=== PATIENT | female | born 1935 | race Caucasian/White ===

== ENCOUNTER 2016-10-02 09:43 | Emergency (ER) | payer OTHER ==
[~2016-10-02] VITALS: Ht 170.2 cm; Wt 90.7 kg
[2016-10-02 09:45] VITALS: BP_SYST 166
[2016-10-02] MEDS ORDERED: hydrALAZINE HCL 25 MG TABLET PO ONE (14:00)
[2016-10-02 16:01] VITALS: BP_SYST 174
== END 2016-10-02 16:01 | disposition home or self-care (01) ==
LOC: SED 09:43
DX: Z04.3 Encounter for examination and observation following other accident (principal); G89.29 Other chronic pain; M25.562 Pain in left knee
CPT/HCPCS: 70450-TC; 72170-TC; 99284

== ENCOUNTER 2020-01-30 05:55 | Observation (INO) | payer OTHER, SELFPAY ==
[2020-01-30] VITALS (7 sets, daily range): BP systolic 109–209
[~2020-01-30] VITALS: Ht 165.1 cm; Wt 68.0 kg
[2020-01-30] MEDS ORDERED: hydrALAZINE HCL 20 MG/ML VIAL IVP ONE ×2 (06:15→10:00)
[2020-01-30] MEDS ORDERED: ATEN-41 PO (06:31)
[2020-01-30] MEDS ORDERED: LEVE500T9 PO (06:33)
[2020-01-30] MEDS ORDERED: CARB200T PO (06:34)
[2020-01-30] MEDS ORDERED: SYN50 PO (06:35)
[2020-01-30 06:40] LABS: ALANINE AMINOTRANSFERASE 29 U/L (12-78); ALBUMIN 3.5 g/dL (3.4-4.8); ASPARTATE AMINOTRANSFERASE 31 U/L (10-37); TOTAL BILIRUBIN 0.5 mg/dL (0.0-1.0)
[2020-01-30] MEDS ORDERED: PANTOPRAZOLE SODIUM 40 MG/VIAL (PROTONIX) IVP ONE (06:45)
[2020-01-30 06:54] LABS: HEMATOCRIT 40.6 % (36-48); HEMOGLOBIN 13.3 g/dL (12.0-16.0); MEAN CORPUSCULAR HEMOGLOBIN 32 pg (27-31); MEAN CORPUSCULAR HGB CONC 33 % (32-36); MEAN CORPUSCULAR VOLUME 97 fL (79.0-98.0); PLATELET COUNT (AUTO) 100 K/uL (130-430); RED BLOOD CELL COUNT(AUTO) 4.17 MIL/uL (4.2-6.2); RED CELL DISTRIBUTION WIDTH 15.2 % (9.0-15.0); WHITE BLOOD COUNT (AUTO) 18.5 K/uL (4.8-10.8)
[2020-01-30 07:08] LABS: ANION GAP 9 (5-15); CALCIUM 8.6 mg/dL (8.4-11.0); CHLORIDE 105 mmol/L (98-107); CREATININE 1.23 mg/dL (0.55-1.30); GLUCOSE 114 mg/dL (70-99); POTASSIUM 4.8 mmol/L (3.5-5.1); SODIUM SERUM 142 mmol/L (136-145); UREA NITROGEN, BLOOD 42 mg/dL (8-21)
[2020-01-30 07:17] LABS: INR 0.9 (0.8-1.2); PROTHROMBIN TIME 9.6 SECS (9.5-12.5)
[2020-01-30 07:35] LABS: ATYPICAL LYMPHOCYTES % 4 % (0-0); BASOPHILS % (MANUAL) 0 % (0-2); EOSINOPHILS % (MANUAL) 1 % (0-7); LYMPHOCYTES % (MANUAL) 69 % (20-46); MONOCYTES % (MANUAL) 1 % (0-11)
[2020-01-30] MEDS ORDERED: LEVE500T53 PO (09:46)
[2020-01-30] MEDS ORDERED: levETIRAcetam 500 MG TABLET PO ONE (10:00)
[2020-01-30] MEDS: levETIRAcetam 500 MG TABLET PO SCH (18:31)
[2020-01-30] MEDS ORDERED: levETIRAcetam 500 MG TABLET PO SCH ×2 (21:00)
[2020-01-30 22:27] LABS: HEMATOCRIT 35.4 % (36-48)
[2020-01-30 22:32] LABS: HEMOGLOBIN 11.7 g/dL (12.0-16.0)
[2020-01-31 06:40] LABS: HEMATOCRIT 35.9 % (36-48)
[2020-01-31] MEDS ORDERED: LEVOTHYROXINE SODIUM 0.05 MG TABLET PO SCH (07:00)
[2020-01-31 08:00] VITALS: BP_SYST 177
[2020-01-31] MEDS: levETIRAcetam 500 MG TABLET PO SCH (08:17)
[2020-01-31] MEDS: ENALAPRILAT DIHYDRATE 1.25 MG/ML VIAL IVP PRN ×2 (08:18→13:31)
[2020-01-31] MEDS ORDERED: PANTOPRAZOLE SODIUM 40 MG/VIAL (PROTONIX) IVP ONE (10:30)
[2020-01-31 12:00] VITALS: BP_SYST 167
[2020-01-31 14:01] VITALS: BP_SYST 150
[2020-01-31 14:40] LABS: HEMOGLOBIN 12.7 g/dL (12.0-16.0)
[2020-01-31 16:25] VITALS: BP_SYST 158
[2020-02-01] MEDS ORDERED: PANTOPRAZOLE SODIUM 40 MG/VIAL (PROTONIX) IVP SCH (09:00)
== END 2020-01-31 17:05 | disposition home or self-care (01) ==
LOC: SED 05:55 → STU 07:37 → INTOOBSV 07:37 → STU 08:39
PROVIDERS: ADMIT Internal Medicine Hospice and Palliative Medicine; ATTEND Internal Medicine Hospice and Palliative Medicine
DX: K92.2 Gastrointestinal hemorrhage, unspecified (principal); Z20.828 Contact with and (suspected) exposure to other viral communicable diseases; N20.0 Calculus of kidney; I10 Essential (primary) hypertension; G40.909 Epilepsy, unspecified, not intractable, without status epilepticus; E03.9 Hypothyroidism, unspecified; H26.9 Unspecified cataract; Z79.899 Other long term (current) drug therapy
CPT/HCPCS: 36415 ×2; 71045; 74176; 76376; 80053; 82272; 85007; 85018 ×2; 85027; 85610; 87426; 93005; 93306; 96374; 96375 ×2; 96376 ×2; 99285; C9113 ×2; G0378; J0360; J7050

== ENCOUNTER 2020-01-31 20:59 | Inpatient (IN) | payer OTHER ==
[~2020-01-31] VITALS: Ht 165.1 cm; Wt 68.0 kg
[~2020-01-31 20:59] MED LIST: ATEN-41 PO; CARB200T PO; LEVE500T53 PO; LEVE500T9 PO; SYN50 PO
[2020-01-31 21:08] VITALS: BP_SYST 150; BP_SYST 153
--- NOTE | 2020-01-31 21:08 | NUR ---
Patient to ER bed 04 to [facility] for evaluation. Side rails up. Report given to ANDRÉS Mehta Addendum: 01/31/20 at 2112 by [email or web address] placed in bed 3
--- NOTE | 2020-01-31 21:14 | NUR ---
ER Dr. RAY at bedside examining patient.
--- NOTE | 2020-01-31 21:30 | NUR ---
PT BIB BLS AMBULANCE FROM HOME. PT C/O BLEEDING FROM RECTUM. PT ANO X4. PT DENIES ANY ABDOMINAL PAIN OR DISCOMFORT. PT DENIES N/V/D. BRIGHT RED BLOOD PRESENT IN DIAPER. RESPIRATIONS EVEN AND UNLABORED. BED LOCKED IN LOWEST POSITION. SAFETY PRECAUTIONS PLACE.
[2020-01-31 21:57] LABS: HEMATOCRIT 39.4 % (36-48); MEAN CORPUSCULAR HEMOGLOBIN 32 pg (27-31); MEAN CORPUSCULAR HGB CONC 33 % (32-36); MEAN CORPUSCULAR VOLUME 97 fL (79.0-98.0); PLATELET COUNT (AUTO) 110 K/uL (130-430); RED BLOOD CELL COUNT(AUTO) 4.07 MIL/uL (4.2-6.2); RED CELL DISTRIBUTION WIDTH 14.7 % (9.0-15.0); WHITE BLOOD COUNT (AUTO) 17.2 K/uL (4.8-10.8)
--- NOTE | 2020-01-31 22:00 | NUR ---
# 16 FR In and Out catheter with use of sterile technique. Immediate return of 150 ml CLEAR YELLOW urine noted. Urine sample collected and sent to lab. Pt tolerated procedure WELL. Patient unable to toilet self.
[2020-01-31 22:05] LABS: ANION GAP 8 (5-15); CHLORIDE 104 mmol/L (98-107); CREATININE 1.76 mg/dL (0.55-1.30); GLUCOSE 143 mg/dL (70-99); POTASSIUM 4.1 mmol/L (3.5-5.1); SODIUM SERUM 138 mmol/L (136-145); UREA NITROGEN, BLOOD 37 mg/dL (8-21)
[2020-01-31 22:10] LABS: ALANINE AMINOTRANSFERASE 35 U/L (12-78); ALBUMIN 3.6 g/dL (3.4-4.8); ASPARTATE AMINOTRANSFERASE 25 U/L (10-37); TOTAL BILIRUBIN 0.3 mg/dL (0.0-1.0)
[2020-01-31 22:11] LABS: PROTHROMBIN TIME 9.9 SECS (9.5-12.5)
[2020-01-31 22:11] LABS: BILIRUBIN,URINE NEGATIVE (NEGATIVE); BLOOD, URINE NEGATIVE (NEGATIVE); CLARITY/URINE CLEAR (CLEAR); COLOR,URINE YELLOW (YELLOW); GLUCOSE,URINE NEGATIVE (NEGATIVE); KETONES,URINE NEGATIVE (NEGATIVE); LEUKOCYTE ESTERASE ,URINE NEGATIVE (NEGATIVE); NITRITE, URINE NEGATIVE (NEGATIVE); PROTEIN URINE NEGATIVE (NEGATIVE); UROBILINOGEN,URINE 0.2 (0.2-1.0)
--- NOTE | 2020-01-31 22:15 | NUR ---
SPOKE WITH PTS GRANDDAUGHTER, YOLIS, TO UPDATE HER ON STATUS OF PATIENT WITH CONSENT FROM PATIENT.
[2020-01-31 22:19] LABS: ATYPICAL LYMPHOCYTES % 16 % (0-0); BAND % (MANUAL) 0 % (0-6); LYMPHOCYTES % (MANUAL) 57 % (20-46)
[2020-01-31 22:20] LABS: BASOPHILS % (MANUAL) 0 % (0-2); EOSINOPHILS % (MANUAL) 1 % (0-7); MONOCYTES % (MANUAL) 0 % (0-11)
--- NOTE | 2020-01-31 22:57 | NUR ---
Patient's code status is FULL CODE paperwork completed and placed in chart.
--- NOTE | 2020-01-31 22:58 | NUR ---
MED REC REVIEWED AND COMPLETED. Addendum: 01/31/20 at 2302 by [email or web address] RECEIVED ADMIT ORDERS FROM DR. GUTIÉRREZ. ADMIT TO MED SURG. ADMIT DX: GI BLEED.
--- NOTE | 2020-01-31 23:08 | NUR ---
MRSA SWAB COLLECTED AND SENT TO LAB.
--- NOTE | 2020-01-31 23:42 | NUR ---
Transfer to [facility]. IV present no sign or symptom of infiltration.
--- NOTE | 2020-01-31 23:50 | NUR ---
ADMIT NOTE Received pt from ER to the floor with a diagnosis of GI BLEED. Admission process initiated. patient oriented to pain management, safety and call light-teach back done.
--- NOTE | 2020-01-31 23:55 | NUR ---
ROUNDS PATIENT LYING IN BED, AWAKE, ALERT, ORIENTED, VITALS STABLE. DENIES ANY PAIN AT THIS TIME. ADMISSION ASSESSMENT DONE AND DOCUMENTED. SEE FLOWSHEET. ORIENTED TO HER ROOM, PHONE AND CALL LIGHT. NEEDS ATTENDED TO. PLAN OF CARE DISCUSSED AND PATIENT VERBALIZED UNDERSTANDING. SAFETY AND FALL MEASURES IN PLACED. BED IN LOW AND LOCKED POSITION. CALL LIGHT PLACED WITHIN REACH.
[2020-02-01 00:08] VITALS: BP_SYST 155
--- NOTE | 2020-02-01 02:11 | NUR ---
ROUNDS PATIENT ASLEEP, RESPIRATIONS EVEN AND UNLABORED, NO SOB NOTED. WILL CONTINUE TO MONITOR.
[2020-02-01] MEDS ORDERED: MORPHINE 2 MG/ML INJ. SYRINGE IVP PRN (02:30)
[2020-02-01] MEDS ORDERED: ALBUTEROL SULFATE 0.083% 2.5 MG/3 ML VIAL.NEB INH PRN (02:30)
[2020-02-01] MEDS ORDERED: NALOXONE HCL 0.4 MG/ML AMP (NARCAN) IVP PRN (02:30)
[2020-02-01] MEDS ORDERED: ACETAMINOPHEN 325 MG TABLET PO PRN (02:30)
[2020-02-01] MEDS ORDERED: ONDANSETRON HCL 4 MG/2 ML VIAL IVP PRN (02:30)
[2020-02-01 04:03] VITALS: BP_SYST 155
--- NOTE | 2020-02-01 04:12 | NUR ---
BEDSIDE COMMODE PATIENT AWAKE, ASSISTED HER TO THE BEDSIDE COMMODE TO VOID. WILL CONTINUE TO MONITOR.
[2020-02-01] MEDS: PANTOPRAZOLE SODIUM 40 MG/VIAL (PROTONIX) IVP SCH ×3 (05:04→21:32)
--- NOTE | 2020-02-01 05:25 | NUR ---
CONSULT REASON FOR CONSULT: GI BLEED PERSON I SPOKE WITH: FRANKIE CONSULTING PHYSICIAN: DR. ALEXANDER GROCERY CLERK SELLING PHONE NUMBER: [phone] ORDERING PHYSICIAN: DR. GUTIÉRREZ
--- NOTE | 2020-02-01 06:19 | NUR ---
CLOSING NOTES PATIENT AWAKE, VITALS STABLE, NO COMPLAINTS AT THIS TIME. ALL NEEDS ATTENDED TO. SAFETY MEASURES MAINTAINED. BED IN LOW AND LOCKED POSITION. SEIZURE PRECAUTION IN PLACED. CALL LIGHT PLACED WITHIN REACH.
[2020-02-01 07:04] LABS: ALANINE AMINOTRANSFERASE 29 U/L (12-78); ALBUMIN 3.1 g/dL (3.4-4.8); ANION GAP 7 (5-15); ASPARTATE AMINOTRANSFERASE 19 U/L (10-37); CALCIUM 7.9 mg/dL (8.4-11.0); CHLORIDE 108 mmol/L (98-107); CREATININE 1.29 mg/dL (0.55-1.30); GLUCOSE 101 mg/dL (70-99); SODIUM SERUM 141 mmol/L (136-145); TOTAL BILIRUBIN 0.2 mg/dL (0.0-1.0); UREA NITROGEN, BLOOD 40 mg/dL (8-21)
[2020-02-01 08:50] VITALS: BP_SYST 137
--- NOTE | 2020-02-01 08:50 | NUR ---
Routine Patient resting comfortably in bed with no complaint of any pain at this time. Patient stable.
[2020-02-01] MEDS ORDERED: ATENOLOL 25 MG TABLET(TENORMIN) PO ONE (10:15)
[2020-02-01] MEDS ORDERED: LEVOTHYROXINE SODIUM 0.05 MG TABLET PO ONE (10:15)
[2020-02-01] MEDS ORDERED: levETIRAcetam 500 MG TABLET PO ONE (10:15)
--- NOTE | 2020-02-01 10:25 | NUR ---
Routine Patient resting comfortably in bed with Dr. Wu at bedside. Denies any pain at this time. Patient stable.
--- NOTE | 2020-02-01 10:35 | NUR ---
Routine Ordered medications given. Patient resting comfortably in bed with no distress noted. Patient stable at this time.
[2020-02-01] MEDS ORDERED: LEVOFLOXACIN 500 MG/D5W 100 ML IV ONE (11:00)
--- NOTE | 2020-02-01 11:10 | NUR ---
Routine Spoke to granddaughter Elsie regarding plan of care for patient. [phone]
[2020-02-01 11:32] VITALS: BP_SYST 149
--- NOTE | 2020-02-01 12:10 | NUR ---
Routine Scheduled IV abx given per order. Patient sitting in bed, eating lunch. No distress noted. Patient stable.
--- NOTE | 2020-02-01 12:20 | NUR ---
Routine Patient assisted to bedside commode and back to bed. Patient stable at this time.
[2020-02-01] MEDS: metroNIDAZOLE 250 mg/NS 50 ML IV SCH ×2 (13:28→21:32)
--- NOTE | 2020-02-01 13:29 | NUR ---
Routine Scheduled IV abx given per order. Patient resting quietly in bed at this time. Stable.
--- NOTE | 2020-02-01 14:45 | NUR ---
Routine Patient assisted to bedside commode (urine and stool) and back to bed. Scheduled po medication given per order. Patient positioned comfortably; stable at this time.
[2020-02-01 15:11] VITALS: BP_SYST 133
--- NOTE | 2020-02-01 16:15 | NUR ---
Routine Patient resting quietly in bed with no complaint of pain. Patient stable at this time.
--- NOTE | 2020-02-01 17:47 | NUR ---
Routine Patient resting comfortably in bed with no distress noted; no complaint of pain. Patient stable.
[2020-02-01 19:45] VITALS: BP_SYST 151
--- NOTE | 2020-02-01 19:45 | NUR ---
INITIAL NOTE AT INITIAL ASSESSMENT, PATIENT IS RESTING IN BED, STABLE, NO SIGNS OF RESPIRATORY DISTRESS. PATIENT VERBALIZES NO PAIN. PLAN OF CARE FOR THE EVENING IS COMMUNICATED WITH THE PATIENT. PATIENT DEMONSTRATES CORRECT USAGE OF CALL LIGHT AT THIS TIME. BED IS LOCKED, ALARMED, AND AT THE LOWEST LEVEL. FALL SAFETY EDUCATION PROVIDED. FALL, SAFETY, ASPIRATION, AND RESPIRATORY PRECAUTIONS WILL BE TAKEN THROUGHOUT THE SHIFT. Addendum: 02/02/20 at 0021 by Sergei Meza RN SEIZURE PRECAUTIONS WILL ALSO BE IN PLACE THROUGHOUT THE SHIFT.
[2020-02-01] MEDS: levETIRAcetam 500 MG TABLET PO SCH (21:31)
--- NOTE | 2020-02-01 21:45 | NUR ---
MED PASS NOTE SCHEDULED MEDICATIONS GIVEN AT THIS TIME, PATIENT TOLERATED WELL. CALL LIGHT IS PLACED WITHIN REACH. BED IS LOCKED, ALARMED, AND AT THE LOWEST LEVEL.
--- NOTE | 2020-02-01 23:45 | NUR ---
HYGIENE CARE NOTE PATIENT ASSISTED TO VOID WITH BEDPAN AT THIS TIME. HYGIENE CARE ALSO PROVIDED, FRESH LINENS PROVIDED, AND PATIENT IS REPOSITIONED FOR COMFORT. PATIENT TOLERATED WELL. CALL LIGHT PLACED WITHIN REACH. BED IS LOCKED, ALARMED, AND AT THE LOWEST LEVEL.
[2020-02-02 00:32] VITALS: BP_SYST 158
--- NOTE | 2020-02-02 01:45 | NUR ---
NOTE PATIENT IS SLEEPING, STABLE, NO SIGNS OF RESPIRATORY DISTRESS. CALL LIGHT IS WITHIN REACH. BED IS LOCKED, ALARMED, AND AT THE LOWEST LEVEL.
--- NOTE | 2020-02-02 03:45 | NUR ---
NOTE PATIENT IS SLEEPING, STABLE, NO SIGNS OF RESPIRATORY DISTRESS. CALL LIGHT IS WITHIN REACH. BED IS LOCKED, ALARMED, AND AT THE LOWEST LEVEL.
[2020-02-02] MEDS: metroNIDAZOLE 250 mg/NS 50 ML IV SCH ×3 (05:17→21:20)
--- NOTE | 2020-02-02 05:45 | NUR ---
NOTE PATIENT IS SLEEPING, STABLE, NO SIGNS OF RESPIRATORY DISTRESS. CALL LIGHT IS WITHIN REACH. BED IS LOCKED, ALARMED, AND AT THE LOWEST LEVEL.
[2020-02-02] MEDS: LEVOTHYROXINE SODIUM 0.05 MG TABLET PO SCH (06:23)
[2020-02-02 06:25] LABS: HEMATOCRIT 34.2 % (36-48); HEMOGLOBIN 11.3 g/dL (12.0-16.0); MEAN CORPUSCULAR HEMOGLOBIN 32 pg (27-31); MEAN CORPUSCULAR HGB CONC 33 % (32-36); MEAN CORPUSCULAR VOLUME 97 fL (79.0-98.0); PLATELET COUNT (AUTO) 90 K/uL (130-430); RED BLOOD CELL COUNT(AUTO) 3.54 MIL/uL (4.2-6.2); RED CELL DISTRIBUTION WIDTH 15.1 % (9.0-15.0); WHITE BLOOD COUNT (AUTO) 15.8 K/uL (4.8-10.8)
[2020-02-02 06:40] LABS: ALANINE AMINOTRANSFERASE 25 U/L (12-78); ANION GAP 8 (5-15); ASPARTATE AMINOTRANSFERASE 15 U/L (10-37); CHLORIDE 105 mmol/L (98-107); CREATININE 1.02 mg/dL (0.55-1.30); GLUCOSE 100 mg/dL (70-99); POTASSIUM 4.5 mmol/L (3.5-5.1); SODIUM SERUM 137 mmol/L (136-145); TOTAL BILIRUBIN 0.4 mg/dL (0.0-1.0); UREA NITROGEN, BLOOD 33 mg/dL (8-21)
--- NOTE | 2020-02-02 06:45 | NUR ---
CLOSING NOTE PATIENT SLEPT WELL THROUGHOUT THE SHIFT, NO SHORTNESS OF BREATH NOTED. AT THIS TIME, PATIENT IS RESTING IN BED, STABLE, NO SIGNS OF RESPIRATORY DISTRESS. CALL LIGHT IS WITHIN REACH. BED IS LOCKED, ALARMED, AND AT THE LOWEST LEVEL. FALL, SAFETY, ASPIRATION, SEIZURE, AND RESPIRATORY PRECAUTIONS HAVE BEEN TAKEN THROUGHOUT THE SHIFT. WILL CONTINUE TO MONITOR UNTIL SHIFT REPORT IS GIVEN AT BEDSIDE TO AM NURSE.
[2020-02-02 07:36] VITALS: BP_SYST 136
--- NOTE | 2020-02-02 07:36 | NUR ---
INITIAL ROUNDS Received pt AAOx4, no s/s resp distress, no c/o pain or discomfort. Plan of care for the day reviewed with pt-pt verbalized her understanding. Pt stated her daughter told her she had blood in toilet, so her she is. Pain management, disease process, skin and safety discussed-teach back done. Side rails up x3, bed alarm on, room close to nursing station for safety. Call light within reach.
--- NOTE | 2020-02-02 08:45 | NUR ---
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 local company truck driver informed and calling .
--- NOTE | 2020-02-02 08:56 | NUR ---
Pt seen by Dr. Roberson from GI-stated plan for Colonoscopy for tomorrow morning. Will start prep tonight.
[2020-02-02] MEDS: ATENOLOL 25 MG TABLET(TENORMIN) PO SCH (09:00)
[2020-02-02] MEDS: PANTOPRAZOLE SODIUM 40 MG/VIAL (PROTONIX) IVP SCH ×2 (09:52→21:20)
[2020-02-02] MEDS: levETIRAcetam 500 MG TABLET PO SCH ×2 (09:52→21:19)
[2020-02-02] MEDS: LEVOFLOXACIN 250 MG/D5W 100 ML IV SCH (09:53)
--- NOTE | 2020-02-02 10:35 | NUR ---
ROUNDS/MD Pt assisted to the bedside commode, voided and assisted back into bed. No s/s resp distress, no c/o pain or discomfort, no blood noted. Dr. Lopez here to see patient-informed MD of MRSA, no new orders at this time. Contact isolation remains in place.
[2020-02-02 11:26] VITALS: BP_SYST 159
[2020-02-02 11:45] LABS: ATYPICAL LYMPHOCYTES % 4 % (0-0); BAND % (MANUAL) 1 % (0-6); BASOPHILS % (MANUAL) 0 % (0-2); EOSINOPHILS % (MANUAL) 5 % (0-7); LYMPHOCYTES % (MANUAL) 62 % (20-46); MONOCYTES % (MANUAL) 4 % (0-11)
[2020-02-02 15:30] VITALS: BP_SYST 161
[2020-02-02] MEDS ORDERED: GOLYTELY / COLYTE SOLUTION 4 LITERS PO ONE (16:00)
[2020-02-02] MEDS ORDERED: BISACODYL 5 MG TABLET.DR (DULCOLAX) PO ONE (16:00)
--- NOTE | 2020-02-02 19:15 | NUR ---
CLOSING NOTE Pt sitting up in bed drinking her Golytly. No s/s resp distress, no c/o pain or discomfort. No rectal bleeding noted today. Endorsed to pointer machine operator nurse regarding Colonoscopy in the morning. Contact isolation maintained throughout shift. Needs met, call light within reach.
[2020-02-02 19:45] VITALS: BP_SYST 165
--- NOTE | 2020-02-02 19:45 | NUR ---
OPENING NOTES Received report from ANDRÉS Romero. Patient sitting on bedside commode, AAOx4, breathing evenly and nonlabored on room air. Vital signs stable. Patient has an IV on the right forearm 18g, flushed, patent and benign, no s/s of infiltration or infection noted at this time. Educated patient on plan of care, fall/safety/isolation precautions, call light system, patient stated understanding with return demonstration. Reminded patient that she will be NPO at midnight and to finish drinking solution beforehand to clear out bowels, patient stated understanding. Bed is locked and at lowest position, will continue to monitor.
--- NOTE | 2020-02-02 21:20 | NUR ---
MEDICATIONS/ROUNDS Patient resting in bed, awake, breathing evenly and nonlabored on room air. Educated patient on due medications, patient stated understanding. Administered medications, patient tolerating them well. Encouraged patient to drink golitely and reminded patient that she is NPO at midnight, patient stated understanding. Fall/safety/isolation/seizure/aspiration precautions, will continue to monitor.
[2020-02-02 23:17] VITALS: BP_SYST 162
--- NOTE | 2020-02-02 23:20 | NUR ---
SUDDEN LOSS OF CONSCIOUSNESS PATIENT HAD A SUDDEN LOSS OF CONSCIOUSNESS WHILE SITTING IN THE COMMODE WITH THE 2 CNAS, THEY LIFTED PATIENT SAFELY BACK TO THE BED. PATIENT REMAINED UNCONSCIOUS, BUT WAS AROUSED VIA DEEP STIMULI BY ANOTHER RN, PATIENT RESPONDED BUT REMAINED LETHARGIC. PATIENT ORIENTED X 4, VITAL SIGNS TAKEN WITHIN NORMAL LIMITS. PATIENT COMPLAINED OF NAUSEA. IV ON RIGHT FOREARM LEAKING, DISCONTINUED. IV RESTARTED ON LEFT WRIST 20G, PATIENT TOLERATED IT WELL. EDUCATED PATIENT ON ZOFRAN, PATIENT STATED UNDERSTANDING. ADMINISTERED MEDICATION, PATIENT TOLERATED IT WELL. PATIENT SAID SHE "FEELS BETTER, BUT EXHAUSTED." PATIENT REFUSED TO DRINK MORE GOLITELY. WARM BLANKETS PROVIDED PER PATIENT REQUEST. NO OTHER NEEDS AT THIS TIME. FALL/SAFETY/ASPIRATION/SEIZURE/ISOLATION PRECAUTIONS, WILL CONTINUE TO MONITOR.
--- NOTE | 2020-02-03 01:15 | NUR ---
ROUNDS Patient resting in bed, eyes closed, breathing evenly and nonlabored on room air. O2 sat 95%, HR 58. No s/s of distress at this time, no other needs at this time. Fall/safety/isolation/seizure/aspiration precautions, will continue to monitor.
--- NOTE | 2020-02-03 03:10 | NUR ---
ROUNDS Patient resting in bed, eyes closed, breathing evenly and nonlabored on room air. No s/s of distress at this time, no other needs at this time. Fall/safety/isolation/seizure/aspiration precautions, will continue to monitor.
[2020-02-03 04:45] VITALS: BP_SYST 112
--- NOTE | 2020-02-03 04:45 | NUR ---
ROUNDS Patient resting in bed, awake, breathing evenly and nonlabored on room air. Vital signs taken, within normal limits. Patient asked for a bedpan which was provided by [employer]. No s/s of distress at this time, no other needs at this time. Fall/safety/isolation/seizure/aspiration precautions, will continue to monitor.
[2020-02-03] MEDS: LEVOTHYROXINE SODIUM 0.05 MG TABLET PO SCH (06:21)
[2020-02-03] MEDS: metroNIDAZOLE 250 mg/NS 50 ML IV SCH ×2 (06:21→13:42)
--- NOTE | 2020-02-03 06:21 | NUR ---
CLOSING NOTES Patient resting in bed, awake, breathing evenly and nonlabored on room air. Educated patient on due medication, patient stated understanding. Administered medication, patient tolerating it well. Due PO med not given due to patient's NPO status. Patient denies any pain at this time. Needs met throughout the shift. Fall/safety/isolation/seizure/aspiration precautions, will endorse care to morning shift RN.
[2020-02-03] MEDS ORDERED: SIMETHICONE 40 MG/0.6 ML ML ONE (07:43)
--- NOTE | 2020-02-03 07:55 | NUR ---
Note Pt off the floor via bed to GI lab for colonoscopy.
[2020-02-03 08:00] VITALS: BP_SYST 137
[2020-02-03] MEDS: fentaNYL CITRATE/PF 100 MCG/2 ML AMP ONE ×5 (08:44→09:58)
[2020-02-03] MEDS: MIDAZOLAM HCL 5 MG/5 ML VIAL ONE ×5 (08:44→09:58)
--- NOTE | 2020-02-03 10:00 | NUR ---
Note Pt back to floor/room at 0945am from GI lab. Pt denies any SOB/resp distress or pain/discomfort at this time. IV in left wrist intact and patent at this time. Pt drowsy from Versed and Fentanyl given in GI lab for procedure. Pt next to nurses station for close observation. Call light within reach.
[2020-02-03] MEDS: LEVOFLOXACIN 250 MG/D5W 100 ML IV SCH (10:06)
[2020-02-03] MEDS: levETIRAcetam 500 MG TABLET PO SCH (10:06)
[2020-02-03] MEDS: PANTOPRAZOLE SODIUM 40 MG/VIAL (PROTONIX) IVP SCH (10:06)
[2020-02-03] MEDS: ATENOLOL 25 MG TABLET(TENORMIN) PO SCH (10:06)
--- NOTE | 2020-02-03 10:20 | NUR ---
Note Dr Lopez at bedside assessing pt and writing orders.
[2020-02-03] MEDS ORDERED: METR500T PO (10:23)
[2020-02-03] MEDS ORDERED: HYDR30CR79 TP (10:23)
[2020-02-03] MEDS ORDERED: LEVO500T89 PO (10:23)
[2020-02-03 11:22] VITALS: BP_SYST 161
--- NOTE | 2020-02-03 13:15 | NUR ---
Note Pt was assisted in sitting up in bed to eat her lunch. Pt tolerated lunch well. Pt's daughter Jaleesa was called and update on pt's status given. Pt's daughter working till 5.30pm. Will pick pt up between 6-6.30pm today. Pt denies any needs at this time. Call light within reach.
--- NOTE | 2020-02-03 14:25 | NUR ---
Note Pt resting in bed - denies any needs at this time. Call light within reach.
[2020-02-03 15:32] VITALS: BP_SYST 155
--- NOTE | 2020-02-03 17:40 | NUR ---
Note Pt's left wrist IV was dc'd - site benign. No swelling/redness/drainage noted at this time. No SOB/resp distress or abdominal pain/discomfort noted at this time. Pt was checked on q1' and PRN all shift for needs and care. Pt was maintained with safety precautions all shift. Pt has orange gown and adult brief on at this time. Pt checked side table and drawers for belongings. No needs noted at this time. Pt denies any needs at this time. Call light within reach.
[2020-02-03 17:45] VITALS: BP_SYST 152
--- NOTE | 2020-02-03 18:30 | NUR ---
Note 1800 - Called pt's daughter Jaleesa, after pt finished eating her dinner. Pt's daughter on her way. Pt sitting up in wheelchair with all her belongings and discharge paperwork next to nurses' station. Pt stable - no SOB/resp distress or pain/discomfort or bleeding noted at this time. Pt denies any needs at this time. 1830 - Pt off the floor via wheelchair to private car.
--- NOTE | 2020-02-05 14:36 | NUR ---
Discharge Follow Up Phone Call Phoned the number listed for patient, . The number was incorrect. Phoned patient's daughter, Ayde [phone]. Patient is staying with her and she passed the phone to patient. Patient's correct phone number is [phone]. Patient stated that she was doing much better but still had high BP, but it was going down. She will contact her PCP to go to the ED if it worsens. Patient has a follow up appointment with her PCP, Dr Mark, on 02/09/20. She will discuss follow up with GI at that time. She filled her prescriptions and is taking her medications as directed. No other questions or concerns or need for follow up. Emailed Emy in Admitting to notify them of patient's correct phone number.
== END 2020-02-03 18:30 | disposition home or self-care (01) | DRG 378 ==
LOC: SED 20:59 → SMU 23:03
PROVIDERS: ADMIT Internal Medicine Hospice and Palliative Medicine; ATTEND Internal Medicine Hospice and Palliative Medicine
PROC: 0DBN8ZZ Excision of Sigmoid Colon, Via Natural or Artificial Opening Endoscopic (ICD-10-PCS; principal; 2020-02-03 08:00)
PROC: 0DBL8ZZ Excision of Transverse Colon, Via Natural or Artificial Opening Endoscopic (ICD-10-PCS; 2020-02-03 08:00)
PROC: 0DBN8ZX Excision of Sigmoid Colon, Via Natural or Artificial Opening Endoscopic, Diagnostic (ICD-10-PCS; 2020-02-03 08:00)
DX: K92.2 Gastrointestinal hemorrhage, unspecified (principal); D62 Acute posthemorrhagic anemia; E03.9 Hypothyroidism, unspecified; E66.9 Obesity, unspecified; G40.909 Epilepsy, unspecified, not intractable, without status epilepticus; I10 Essential (primary) hypertension; K52.9 Noninfective gastroenteritis and colitis, unspecified; K63.5 Polyp of colon; K64.4 Residual hemorrhoidal skin tags; R00.1 Bradycardia, unspecified; K64.8 Other hemorrhoids; N20.0 Calculus of kidney; Z85.6 Personal history of leukemia; Z22.322 Carrier or suspected carrier of Methicillin resistant Staphylococcus aureus
CPT/HCPCS: 36415; 80053; 81003; 82272; 85007; 85027; 85610-TC; 85730-TC; 87081; 88305; 99285; C9113; J1956; J2250; J2270; J2405; J3010; J3490

== ENCOUNTER 2020-06-24 09:44 | Outpatient (CLI) | payer OTHER ==
[~2020-06-24 09:44] MED LIST changes: +HYDR30CR79 TP; +LEVO500T89 PO; +METR500T PO
== END 2020-06-24 19:14 | disposition home or self-care (01) ==
LOC: SCA 09:44
DX: R06.02 Shortness of breath (principal)
CPT/HCPCS: 36600; 82803-TC

== ENCOUNTER 2021-04-27 19:48 | Observation (INO) | payer OTHER ==
[~2021-04-27] VITALS: Ht 167.6 cm; Wt 68.9 kg
[~2021-04-27 19:48] MED LIST changes: +LEVE500T21 PO; -LEVE500T53 PO; -LEVO500T89 PO; +LEVO500T90 PO
[2021-04-27 19:51] VITALS: BP_SYST 146
[2021-04-27 20:57] LABS: HEMATOCRIT 36.9 % (36-48); MEAN CORPUSCULAR HEMOGLOBIN 29 pg (27-31); MEAN CORPUSCULAR HGB CONC 33 % (32-36); MEAN CORPUSCULAR VOLUME 89 fL (79.0-98.0); PLATELET COUNT (AUTO) 177 K/uL (130-430); RED BLOOD CELL COUNT(AUTO) 4.16 MIL/uL (4.2-6.2); RED CELL DISTRIBUTION WIDTH 14.7 % (9.0-15.0); WHITE BLOOD COUNT (AUTO) 11.7 K/uL (4.8-10.8)
[2021-04-27 21:19] LABS: ANION GAP 9 (5-15); CALCIUM 8.2 mg/dL (8.4-11.0); CHLORIDE 102 mmol/L (98-107); CREATININE 1.31 mg/dL (0.55-1.30); GLUCOSE 146 mg/dL (70-99); POTASSIUM 4.3 mmol/L (3.5-5.1); SODIUM SERUM 136 mmol/L (136-145); UREA NITROGEN, BLOOD 35 mg/dL (8-21)
[2021-04-27 21:29] LABS: ALANINE AMINOTRANSFERASE 23 U/L (12-78); ALBUMIN 3.5 g/dL (3.4-4.8); ASPARTATE AMINOTRANSFERASE 28 U/L (10-37); TOTAL BILIRUBIN 0.2 mg/dL (0.0-1.0)
[2021-04-27] MEDS ORDERED: LORazepam 2 MG/ML VIAL ONE (21:35)
[2021-04-27 21:43] LABS: BAND % (MANUAL) 2 % (0-6); BASOPHILS % (MANUAL) 0 % (0-2); EOSINOPHILS % (MANUAL) 1 % (0-7); MONOCYTES % (MANUAL) 8 % (0-11)
[2021-04-27 21:44] LABS: LYMPHOCYTES % (MANUAL) 47 % (20-46)
[2021-04-27 21:45] LABS: CARBAMAZEPINE (TEGRETOL) 3 ug/mL (4-12)
[2021-04-27] MEDS ORDERED: levETIRAcetam 500 MG IV PREMIX 100 ML IV ONE (21:45)
[2021-04-27] MEDS ORDERED: LORazepam 2 MG/ML VIAL IVP ONE (22:15)
[2021-04-27] MEDS ORDERED: AMLO5TAB4 PO (23:01)
[2021-04-27] MEDS ORDERED: APIX2.5T PO (23:01)
[2021-04-27] MEDS ORDERED: HYDR-4038 PO (23:01)
[2021-04-28] MEDS ORDERED: LORazepam 2 MG/ML VIAL IVP PRN (02:15)
[2021-04-28] MEDS ORDERED: ACETAMINOPHEN 325 MG TABLET PO PRN (02:15)
[2021-04-28] MEDS ORDERED: ALBUTEROL SULFATE 0.083% 2.5 MG/3 ML VIAL.NEB INH PRN (02:15)
[2021-04-28 06:47] VITALS: BP_SYST 160
[2021-04-28] MEDS ORDERED: LEVOTHYROXINE SODIUM 0.05 MG TABLET PO SCH (07:00)
[2021-04-28] MEDS: levETIRAcetam 500 MG TABLET PO SCH ×2 (08:33→17:35)
[2021-04-28 08:37] VITALS: BP_SYST 139
[2021-04-28] MEDS ORDERED: amLODIPine BESYLATE 5 MG TABLET PO SCH (09:00)
[2021-04-28] MEDS ORDERED: APIXABAN 2.5 MG TABLET PO SCH (09:00)
[2021-04-28 11:27] VITALS: BP_SYST 150
[2021-04-28 11:56] VITALS: BP_SYST 142
[2021-04-28] MEDS ORDERED: CARB200T PO (13:47)
[2021-04-28 15:01] VITALS: BP_SYST 148
[2021-04-28 15:21] VITALS: BP_SYST 137
[2021-04-28] MEDS ORDERED: levETIRAcetam 500 MG TABLET PO SCH (21:00)
== END 2021-04-28 18:53 | disposition home or self-care (01) ==
LOC: SED 19:48 → INTOOBSV 04-28 00:23 → STU 04-28 00:23
PROVIDERS: ADMIT Internal Medicine; ATTEND Internal Medicine
DX: G40.909 Epilepsy, unspecified, not intractable, without status epilepticus (principal); Z20.822 Contact with and (suspected) exposure to COVID-19; I48.91 Unspecified atrial fibrillation; I10 Essential (primary) hypertension; C91.90 Lymphoid leukemia, unspecified not having achieved remission; E11.9 Type 2 diabetes mellitus without complications; E03.9 Hypothyroidism, unspecified; Z79.01 Long term (current) use of anticoagulants; Z79.899 Other long term (current) drug therapy; Z96.659 Presence of unspecified artificial knee joint
CPT/HCPCS: 36415; 70450; 76376; 80053; 80156; 85007; 85027; 87426; 93005; 96365; 96375; 99285; G0378; J1953; J2060